=== PATIENT | female | born 1970 | race Caucasian/White ===

== ENCOUNTER 2020-08-20 18:49 | Emergency (ER) | payer MEDICARE, MEDICAID, SELFPAY ==
[2020-08-20 18:50] VITALS: BP 119/90; PULSE 76; RESP 18; TEMP 36.8; O2SAT 95; BMI 30.7
--- NOTE | 2020-08-20 18:56 | CT_ITS ---
PROCEDURE INFORMATION: Exam: CT Maxillofacial Without Contrast Exam date and time: 08/20/2020 6:56 PM Age: 50 years old Clinical indication: Injury or trauma; Fall; Blunt trauma (contusions or hematomas); Patient HX: Patient fell face down and doesn't remember what happened. TECHNIQUE: Imaging protocol: Computed tomography images of the face without contrast. Radiation optimization: All CT scans at this facility use at least one of these dose optimization techniques: automated exposure control; mA and/or kV adjustment per patient size (includes targeted exams where dose is matched to clinical indication); or iterative reconstruction. COMPARISON: No relevant prior studies available. FINDINGS: Orbital cavity: Orbits are normal. Globes are unremarkable. Bones/joints: No acute fracture or malalignment. Pterygoid plates are intact. Bilateral temporomandibular joints are congruent. Paranasal sinuses: No air-fluid levels. Mastoid air cells: Visualized mastoid air cells are clear. Soft tissues: Unremarkable. IMPRESSION: No acute findings.
--- NOTE | 2020-08-20 18:56 | CT_ITS ---
PROCEDURE INFORMATION: Exam: CT Head Without Contrast Exam date and time: 08/20/2020 6:56 PM Age: 50 years old Clinical indication: Injury or trauma; Fall; Blunt trauma (contusions or hematomas); With loss of consciousness; Not specified TECHNIQUE: Imaging protocol: Computed tomography of the head without contrast. Axial slices 5 mm thick without coronal or sagittal reformats provided. Radiation optimization: All CT scans at this facility use at least one of these dose optimization techniques: automated exposure control; mA and/or kV adjustment per patient size (includes targeted exams where dose is matched to clinical indication); or iterative reconstruction. COMPARISON: No relevant prior studies available. FINDINGS: Brain: No acute intracranial hemorrhage. No intra- or extra-axial fluid collection. No mass effect or midline shift. Periventricular and subcortical white matter hypodensities, compatible with chronic hypertensive microvascular disease. Calcifications in the basal ganglia, likely physiologic. No loss of odom-white matter differentiation. Cerebral ventricles: No hydrocephalus. Paranasal sinuses: No air fluid levels in the visualized paranasal sinuses. Mastoid air cells: Visualized mastoid air cells are well aerated. Orbital cavity: Within normal limits. Bones/joints: No acute fracture. Soft tissues: Within normal limits. IMPRESSION: 1. No acute intracranial abnormality. 2. White matter changes, compatible with chronic hypertensive microvascular disease.
--- NOTE | 2020-08-20 18:56 | CT_ITS ---
PROCEDURE INFORMATION: Exam: CT Cervical Spine Without Contrast Exam date and time: 08/20/2020 6:56 PM Age: 50 years old Clinical indication: Injury or trauma; Fall; Blunt trauma TECHNIQUE: Imaging protocol: Computed tomography images of the cervical spine without contrast. Radiation optimization: All CT scans at this facility use at least one of these dose optimization techniques: automated exposure control; mA and/or kV adjustment per patient size (includes targeted exams where dose is matched to clinical indication); or iterative reconstruction. COMPARISON: CT HEAD/BRAIN WO CON 08/20/2020 7:33 PM FINDINGS: Bones/joints: No acute fracture or malalignment. Straightening of physiologic cervical lordosis, which may be related to patient positioning or muscle spasm. Discs/Spinal canal/Neural foramina: Multi-level degenerative disc disease, most prominent at C5-C7 where there disc space narrowing and minor endplate changes.. Uncovertebral and facet hypertrophy results in mild bilateral neuroforaminal narrowing at C5-C6. No significant spinal canal stenosis. Prevertebral Space: No prevertebral soft tissue edema. Lungs: The visualized lung apices are within normal limits. Soft tissues: Ligamentous calcifications at the craniocervical junction, compatible with chronic sequelae of prior trauma. IMPRESSION: 1. No acute osseous abnormality. 2. Multi-level degenerative changes, as detailed above.
[2020-08-20 20:30] VITALS: BP 105/76; PULSE 63; O2SAT 95
[2020-08-20 20:53] VITALS: BP 108/79; PULSE 60; O2SAT 96
[2020-08-20 21:01] VITALS: BP 107/69; PULSE 60; O2SAT 94
--- NOTE | 2020-08-20 21:07 | [facility].EDGENADL ---
ED Disposition Clinical Impression: Laceration of face Fall Qualifiers: Encounter type: initial encounter Qualified Code(s): W19.XXXA - Unspecified fall, initial encounter Disposition: Home, Self-Care Condition on Discharge: Good Additional Instructions: May take Tylenol and ibuprofen as needed for pain relief. Skin glue will dissolve on its own. Wash the area with warm soap and water. If you notice redness or pus from the wound, please return to the ED for further evaluation. Referrals: Provider,Referral, [Primary Care Provider] - - Critical Care Critical Care Time: No Attestation: On 08/20/20, the high probability of a clinically significant, sudden or life threatening deterioration of the following system(s) required my full and direct attention, intervention and personal management. The time I documented below is in addition to time spent performing reported procedures but includes the following listed in this critical care notation. Medical Decision Making - Medical Records Medical records reviewed: Yes: I reviewed the patient's medical records. - Kenny Inquiry Pt receiving controlled substance: No Vital Signs: 08/20/20 18:50 Temperature 98.3 F Temperature Source Oral Pulse Rate [Left Radial] 76 Respiratory Rate 18 Blood Pressure [Right Arm] 119/90 Blood Pressure Mean [Right Arm] 99 Blood Pressure Source [Right Arm] Automatic Cuff Blood Pressure Position [Right Arm] Sitting 02 Sat by Pulse Oximetry 95 Oxygen Delivery Method Room Air - CT Data CT Scan: Head, C-Spine Time Received: 20:[address] Reviewed: Yes: I have reviewed the patient's CT results, I have viewed the radiologist's interpretation Preliminary Findings: Normal/NAD Medical Decision Narrative: Upon presentation, patient is hemodynamically stable and nontoxic-appearing. Patient presents after a fall. Patient sustained multiple small abrasions and 2 small lacerations to the face that are hemostatic. Given the patient is intoxicated, CT head, CT C-spine were obtained along with a CT face. Reviewed radiology interpretations which not demonstrate any acute fractures or dislocations. Upon reassessment, patient states that her face continues to be sore, but she appears clinically sober. Patient was discharged stable condition. General Adult HPI - General Chief complaint: Fall Stated complaint: fall Time Seen by Provider: 08/20/20 18:55 Mode of Arrival: EMS Source of Information: Patient Limitations: No Limitations Description of Symptoms (Recalled from ER Triage Doc. by RN): pt returned to [facility] today after being downtown with facial cuts, Pt states she does not know what happened to her face. c/o right hip and face pain. - History of Present Illness HPI narrative: Patient is a 50-year-old female who presents after a fall. Patient is a resident of [facility] and was wandering around [facility] after becoming acutely intoxicated with alcohol and tripped and fell. Patient sustained abrasion over the right cheek, small abrasion to the nasal bridge, abrasion below the nose. Staff at [facility] called EMS for evaluation. Patient states that she drank 1 beer today and states that she fell. However, after some minutes patient states that she does not remember what happened to her face. Patient otherwise not had any fevers, chills, nausea, vomiting, chest pain, lily pain, she has no injuries to the extremities. - Related Data Previous Rx's Medication Instructions Recorded gabapentin 100 mg capsule 100 mg PO TID #90 cap 07/20/20 Allergies Allergy/AdvReac Type Severity Reaction Status Date / Time No Known Allergies Allergy Verified 08/20/20 18:58 [facility] History - Hepatitis A Screen Drug use history?: No High risk sexual behaviors?: No History of sexually transmitted infection?: No Currently employed?: No Childcare worker?: No Do you have indoor plumbing?: Yes Do you have electricity?: Yes Attestation state
[2020-08-20 21:45] VITALS: BP 104/74; PULSE 60; RESP 18; TEMP 36.8; O2SAT 94
== END 2020-08-20 22:05 | disposition home or self-care (01) ==
PROVIDERS: Emergency Provider Emergency Medicine
DX: S01.21XA Laceration without foreign body of nose, initial encounter (principal); S01.511A Laceration without foreign body of lip, initial encounter; S01.411A Laceration without foreign body of right cheek and temporomandibular area, initial encounter; W18.00XA Striking against unspecified object with subsequent fall, initial encounter; Y92.414 Local residential or business street as the place of occurrence of the external cause; F10.10 Alcohol abuse, uncomplicated
CPT/HCPCS: 12011; 70450; 70486; 72125; 99281; 99282

== ENCOUNTER → 2020-12-27 10:15 | Outpatient (CLI) | payer MEDICARE, MEDICAID, SELFPAY ==
[2020-12-27 10:43] LABS: Basophils # 0.1 K/mm3 (0-0.2); Basophils % 1.3 % (0.1-2.0); Eosinophils # 0.1 K/mm3 (0.0-0.4); Eosinophils % 1.7 % (0.1-12.0); Hematocrit 43.5 % (37.0-47.0); Hemoglobin 14.4 g/dL (12.2-16.2); Lymphocytes # 1.4 K/mm3 (0.7-4.5); Mean Corpuscular HGB Conc 33.2 g/dL (31.8-35.4); Mean Corpuscular Hemoglobin 32.2 pg (27.0-31.2); Mean Platelet Volume 9.1 fl (7.4-10.4); Monocytes # 0.5 K/mm3 (0.1-1.0); Monocytes % 10.8 % (1.7-9.3); Neutrophils # 2.3 K/mm3 (1.8-7.8); Neutrophils % 53.1 % (37.0-80.0); Platelet Count 259 K/mm3 (142-424); Red Blood Count 4.49 M/mm3 (4.20-5.40); Red Cell Distribution Width 13.5 % (11.5-17.5); White Blood Count 4.3 K/mm3 (4.8-10.8)
--- NOTE | 2020-12-27 10:43 | MR_ITS ---
PROCEDURE: MR HEAD/BRAIN WO/W CON CLINICAL INDICATION: freezing of gait, history of falls COMPARISON: CT CT HEAD/BRAIN WO CON from 08/20/2020 TECHNIQUE: Routine multiplanar multi echo sequences are performed without and with gadolinium enhancement. FINDINGS: No midline shift, mass effect, intracranial hemorrhage, or hydrocephalus. No evidence of acute infarction. There are few small T2 white matter hyperintensities in the frontal and parietal lobes. These do not enhance nor do they demonstrate restricted diffusion. There is a small cystic area in the left subinsular region at 0.7 x 4 mm and may represent a small choroidal fissure cyst. The pituitary, optic chiasm, corpus callosum, and craniocervical junction have an unremarkable appearance. There is mild generalized atrophy. No mastoid effusion or sinus air-fluid level. IMPRESSION: No acute intracranial findings. Mild generalized atrophy with scattered T2 white matter hyperintensities in the frontal and parietal lobes most commonly seen with ischemic microangiopathic changes. Differential diagnosis includes demyelinating process although imaging findings are not typical for that entity. Correlation with clinical parameters required. Dictated by: Malik Valdez MD 12/28/2020 13:06 Malik Valdez MD in [place] 12/28/2020 13:06
[2020-12-27 11:01] LABS: Alanine Aminotransferase 185 U/L (12-78); Albumin Level 4.1 g/dl (3.5-5.0); Albumin/Globulin Ratio 1.2 (1.1-1.8); Alkaline Phosphatase 60 U/L (38-126); Anion Gap 13.1 mEq/L (5-15); Aspartate Amino Transferase 141 U/L (14-36); Bilirubin,Total 0.4 mg/dl (0.2-1.3); Blood Urea Nitrogen 10 mg/dl (7-17); Calcium 9.6 mg/dl (8.4-10.2); Carbon Dioxide 26 mmol/L (22.0-30.0); Chloride 102 mmol/L (98-107); Estimated Glomerular Filt Rate 89 ml/min (>60); GFR (African American) 108 ML/MIN (>60); Globulin 3.3 g/dL (1.3-3.2); Glucose 112 mg/dl (74-100); Potassium 4.1 mmoL/L (3.5-5.1); Sodium 137 mmol/L (136-145); Total Protein,Serum 7.4 g/dl (6.3-8.2)
[2020-12-27 12:36] LABS: Ferritin 90.5 ng/ml (6.24-137)
[2020-12-27 15:06] LABS: Vitamin B12 925 pg/mL (239-931)
[2020-12-27 15:09] LABS: Folate > 20.00 ng/mL
[2020-12-28 10:11] LABS: Ceruloplasmin 30.4 mg/dL (19.0-39.0)
== END ==
PROVIDERS: PCP Emergency Medicine; Visit Provider Specialist
DX: E83.10 Disorder of iron metabolism, unspecified (principal); F39 Unspecified mood [affective] disorder; L65.9 Nonscarring hair loss, unspecified; R25.1 Tremor, unspecified; R45.1 Restlessness and agitation; R63.5 Abnormal weight gain; Z91.81 History of falling; R26.89 Other abnormalities of gait and mobility
CPT/HCPCS: 36415; 70553; 80053; 82390; 82607; 82728; 82746; 84443; 85025; A9576